=== PATIENT | female | born 1945 | race Caucasian/White ===

== ENCOUNTER → 2016-11-13 | Day surgery (SDC) | payer MEDICARE, BC ==
[2016-11-12 08:42] VITALS: BMI 41.1
[~2016-11-13] MED LIST: ATORVASTATIN 40 MG TAB PO SCH; FLECAINIDE ACETATE 75 MG PO SCH; FUROSEMIDE 20 MG TAB PO PRN; LACTATED RINGERS 1,000 ML IV SCH; LIDOCAINE 1% 20 ML VIAL (10MG/ML) FOR IV START INTRADERMA PRN; LIDOCAINE 1% INJ 10MG/ML (20 ML MDV) ONE; MELOXICAM 7.5 MG TAB PO SCH; METOPROLOL TARTRATE 50 MG TAB PO SCH; NON-FORMULARY DRUG (Acetaminophen [Tylenol Arthritis] 650 MG) PO SCH; NON-FORMULARY DRUG (Omeprazole [Prilosec] 20 MG) PO SCH; PROPOFOL 10 MG/ML 20 ML VIAL IV ONE; SODIUM CHLORIDE 0.9% 1,000 ML IV SCH; WARFARIN 5 MG TAB PO SCH
[2016-11-13 08:07] LABS: Prothrombin Time 28.6 sec (9.0-12.0)
[2016-11-13 08:23] VITALS: RESP 16
--- NOTE | 2016-11-13 09:14 | ECHOT ---
DATE OF SERVICE: INDICATION: Evaluation left atrial appendage. PROCEDURE: After explaining the procedure to the patient as well as the risks and complications, blood pressure, heart rate, O2 saturation was monitored. The throat was sprayed with Cetacaine. She received sedation per anesthesia department. The probe was introduced in the esophagus without difficulty. Images were obtained. Following that, the probe was removed. There was no immediate complication. FINDINGS: Left atrial size is upper size of normal. Left atrial appendage is normal. Right atrial size is dilated. Left ventricular size and systolic function normal. The aortic valve, mitral valve, tricuspid valve and pulmonic valve appear to be normal. Descending thoracic aorta revealed mild atherosclerotic changes. No pericardial effusion was noted. Contrast bubble study revealed no evidence of shunting across the interatrial septum. Doppler pulse wave and color Doppler obtained revealed a mild mitral with moderate tricuspid regurgitation. There was no shunting by color Doppler study. CONCLUSION: 1. Normal appearance of left atrial appendage. 2. Dilated right atrium. 3. Normal left ventricular size with ejection fraction 50% to 55%. 4. Mild mitral with moderate tricuspid regurgitation and no significant pulmonary hypertension. 5. No shunting across the interatrial septum.
--- NOTE | 2016-11-13 09:16 | CE ---
DATE OF SERVICE: CARDIOVERSION PROCEDURE NOTE INDICATION: Atrial fibrillation. PROCEDURE: After explaining the procedure to the patient as well as the risks and complications and performing transesophageal echocardiogram, a synchronized biphasic cardioversion using 200 joules was done with successful temple of normal sinus rhythm. There was no immediate complication.
[2016-11-13 10:09] VITALS: TEMP 98
[2016-11-13 10:23] VITALS: BP 143/64; PULSE 55
== END | disposition home or self-care (01) ==
LOC: CATHCVL 07:17
PROVIDERS: ATTEND Internal Medicine Interventional Cardiology
DX: I48.91 Unspecified atrial fibrillation (principal); I70.0 Atherosclerosis of aorta; I07.1 Rheumatic tricuspid insufficiency; I48.3 Typical atrial flutter; Z79.01 Long term (current) use of anticoagulants; I25.10 Atherosclerotic heart disease of native coronary artery without angina pectoris; I10 Essential (primary) hypertension; E78.2 Mixed hyperlipidemia; Z82.49 Family history of ischemic heart disease and other diseases of the circulatory system; Z79.899 Other long term (current) drug therapy; Z88.1 Allergy status to other antibiotic agents
CPT/HCPCS: 93312; 93320; 93005; 93325; 92960; 85610; J2001; J2704

== ENCOUNTER 2017-04-28 06:21 | Day surgery (SDC) | payer MEDICARE, BC ==
[~2017-04-28 06:21] MED LIST changes: -ATORVASTATIN 40 MG TAB PO SCH; -FLECAINIDE ACETATE 75 MG PO SCH; -FUROSEMIDE 20 MG TAB PO PRN; +HYDROmorphone 1 MG/ML 1 ML SYRINGE IVP PRN; -LIDOCAINE 1% 20 ML VIAL (10MG/ML) FOR IV START INTRADERMA PRN; -LIDOCAINE 1% INJ 10MG/ML (20 ML MDV) ONE; -MELOXICAM 7.5 MG TAB PO SCH; -METOPROLOL TARTRATE 50 MG TAB PO SCH; +MIDAZOLAM 2 MG/2 ML VIAL IV PRN; -NON-FORMULARY DRUG (Acetaminophen [Tylenol Arthritis] 650 MG) PO SCH; -NON-FORMULARY DRUG (Omeprazole [Prilosec] 20 MG) PO SCH; -PROPOFOL 10 MG/ML 20 ML VIAL IV ONE; -SODIUM CHLORIDE 0.9% 1,000 ML IV SCH; -WARFARIN 5 MG TAB PO SCH
[2017-04-28] MEDS: SODIUM CHLORIDE 0.9% 1,000 ML IV ONE ×2 (06:45→16:48)
[2017-04-28 07:13] LABS: INR 2.4 (<1.2); Prothrombin Time 23.3 sec (9.0-12.0)
[2017-04-28] MEDS ORDERED: PROTAMINE SULFATE 10 MG/ML 5 ML VIAL IV ONE (07:24)
[2017-04-28] MEDS ORDERED: ePHEDrine SULFATE/0.9% NACL/PF 50 MG/5 ML SYRINGE IV ONE (07:24)
[2017-04-28] MEDS ORDERED: FUROSEMIDE 10 MG/ML 2 ML VIAL ONE (07:24)
[2017-04-28] MEDS ORDERED: ISOPROTERENOL 250 MCG/1.25 ML SYR IV ONE (07:24)
[2017-04-28] MEDS ORDERED: LIDOCAINE 1% INJ 10MG/ML (20 ML MDV) ONE (07:24)
[2017-04-28] MEDS ORDERED: PROPOFOL 10 MG/ML 20 ML VIAL IV ONE (07:24)
[2017-04-28] MEDS ORDERED: fentaNYL (PF) 50 MCG/ML 2 ML AMP ONE (07:24)
[2017-04-28] MEDS ORDERED: HEPARIN SODIUM,PORCINE 10,000 UNIT/ML 1 ML VIAL ONE (07:24)
[2017-04-28] MEDS ORDERED: SUCCINYLCHOLINE CHLORIDE 100 MG/5 ML SYR IV ONE (07:24)
[2017-04-28] MEDS ORDERED: HEPARIN SODIUM,PORCINE 5,000 UNIT/ML 1 ML VIAL ONE (07:24)
[2017-04-28] MEDS ORDERED: ONDANSETRON 4 MG/2 ML VIAL ONE ×2 (07:24→15:37)
[2017-04-28] MEDS ORDERED: MIDAZOLAM 2 MG/2 ML VIAL ONE (07:24)
[2017-04-28] MEDS ORDERED: IV FLUID CONTINUATION 900 ML IV ONE (07:30)
[2017-04-28] MEDS ORDERED: LIDOCAINE 2% INJ 20 MG/ML SQ ONE (08:19)
[2017-04-28] MEDS ORDERED: HEPARIN SODIUM,PORCINE/D5W PMX 25,000 UNIT in DEXTROSE/WATER 1 500ML.BAG IV ONE (08:36)
[2017-04-28] MEDS ORDERED: HEPARIN SODIUM (1,000 UNIT/ML) 1,000 UNIT in SODIUM CHLORIDE 0.9% 1,000 ML IRRIGATION ONE (11:28)
[2017-04-28] MEDS ORDERED: IOHEXOL 350 MG/ML 100 ML BOTTLE INJ ONE (12:01)
[2017-04-28] MEDS ORDERED: SODIUM CHLORIDE 0.9% 1,000 ML IV ONE (12:16)
[2017-04-28] MEDS ORDERED: SODIUM CHLORIDE 0.9% 500 ML IV ONE (12:16)
[2017-04-28] MEDS ORDERED: ACETAMINOPHEN IV (For NPO) 1,000 MG in EMPTY BAG 1 BAG IVPB ONE (13:54)
[2017-04-28] MEDS ORDERED: ACETAMINOPHEN TAB 325 MG TAB PO PRN (13:54)
[2017-04-28] MEDS ORDERED: FUROSEMIDE 20 MG TAB PO PRN (14:00)
--- NOTE | 2017-04-28 14:00 | P.PCN ---
Preoperative Diagnosis: Procedure A. fib ablation Indication for the procedure Symptomatic paroxysmal atrial fibrillation, drug refractory Procedures performed Invasive hemodynamic monitoring and sampling via right femoral artery catheter Comprehensive diagnostic EP study with induction of arrhythmia Coronary sinus pacing and recording Programmed stimulation following Isuprel with induction of atrial fibrillation Right and left transseptal catheterization Intracardiac echocardiography 3-D mapping Pulmonary vein isolation, all 4 veins completely isolated with entrance block, during sinus rhythm Linear ablation in the left atrium roof during atrial fibrillation Linear ablation in the left atrium anterior LA wall during atrial fibrillation Result Isolation of all 4 pulmonary veins Termination of atrial fibrillation outside the left superior pulmonary vein along the roof, closest to the base of the appendage Successful termination of atrial fibrillation during the procedure The right inferior pulmonary vein is low relative to the rest of the atrium Left-sided veins have a large common ostium Postoperative Diagnosis: Procedure(s) Performed: Implants: Indications for Procedure: Operative Findings: Description of Procedure:
--- NOTE | 2017-04-28 15:01 | P.PCN ---
Preoperative Diagnosis: Patient was brought to the EP lab in a fasting state. Written informed consent was obtained prior to procedure the procedure was performed under general anesthesia venous sheaths were placed in the right femoral vein and 2 venous sheaths in the left femoral vein and right femoral artery catheter was placed for hemodynamic monitoring and sampling. ACT was maintained above 300. Catheters were placed in high right atrium, His bundle area, right ventricle and coronary sinus later in the left atrium. Patient was in sinus rhythm. Study Intracardiac echocardiography was performed. Interatrial septum was identified. Pulmonary veins were identified and left atrial appendage was identified. Left and right transseptal catheterization was performed RA pressure 20/14 mmHg and LA pressure was 29 by 10 mmHg Baseline AH and HV intervals are normal Diagnoses EP study was performed from the high right atrium and right ventricle and coronary sinus Sinus node recovery times were within normal limits AV node Wenckebach block 360 ms Burst stimulation from the high right atrium, burst stimulation from the coronary sinus Extra stimulation after triple extrastimuli from the high right atrium and multiple sites along with coronary sinus Diagnostic EP study is performed on Isuprel Atrial fibrillation was induced A. fib ablation, pulmonary vein isolation Cryoablation was performed Cryoablation of the common left-sided veins was performed and complete isolation was documented Cryoablation of the right superior only vein was performed with phrenic nerve pacing and isolation was documented, entrance block documented Cryoablation of the right inferior pulmonary vein was performed during phrenic nerve pacing and entrance block was documented Following that linear A. fib ablation in the left atrium was performed Using the CARTO system and RF ablation cath was placed in the left atrium and the pulmonary veins were mapped in the left atrium was mapped Linear ablation along the anterior wall from the right superior vein down to the mitral annulus was performed Linear ablation along the roof was performed and this resulted in termination of the atrial fibrillation outside the base of the left atrial appendage and left superior pulmonary vein along the roof Result Successful pulmonary vein isolation of all 4 pulmonary veins Linear ablation along the anterior LA wall Linear ablation along the roof resulting in termination of atrial fibrillation Patient tolerated the procedure well without any acute complications Postoperative Diagnosis: Procedure(s) Performed: Implants: Indications for Procedure: Operative Findings: Description of Procedure:
[2017-04-28] MEDS ORDERED: ONDANSETRON 4 MG/2 ML VIAL IVP PRN (15:37)
[2017-04-28] MEDS ORDERED: WARFARIN 5 MG TAB PO SCH (18:00)
[2017-04-28] MEDS: SODIUM CHLORIDE 0.9% 1,000 ML IV SCH ×2 (18:04→21:53)
[2017-04-28 18:24] VITALS: BMI 43.1
[2017-04-28] MEDS: ATORVASTATIN 40 MG TAB PO SCH (20:04)
[2017-04-28] MEDS: METOPROLOL TARTRATE 25 MG TAB PO SCH (20:04)
[2017-04-29 06:31] LABS: Anion Gap 9 mmol/L; Blood Urea Nitrogen 16 mg/dL (7-17); Calcium 8.5 mg/dL (8.4-10.2); Carbon Dioxide 24 mmol/L (22-30); Chloride 107 mmol/L (98-107); Glucose 98 mg/dL (74-99); INR 2.1 (<1.2); Non-African American GFR(MDRD) >60 (>60 ml/min/1.73 sqM); Potassium 3.7 mmol/L (3.5-5.1); Prothrombin Time 20.6 sec (9.0-12.0); Sodium 140 mmol/L (137-145)
[2017-04-29] MEDS ORDERED: PANTOPRAZOLE 40 MG TABLET PO SCH (07:30)
--- NOTE | 2017-04-29 08:26 | P.DS ---
Providers Attending physician: João Tucker Primary care physician: Tanya Gauri [facility] Course: Patient is doing well She denies any chest discomfort pleuritic chest discomfort shortness of breath dizziness lightheadedness. Yesterday she had a bit of nausea but today she is doing well. She is eating breakfast at this time. Heart sounds are normal breath sounds are clear extremities warm groins have healed well Vitals are stable Impression Recurrent paroxysmal atrial fibrillation refractory to treatment Status post A. fib ablation and termination of atrial fibrillation during RF ablation outside the base of the left atrial appendage, at the lateral and of the roof of the left atrium and outside the left superior pulmonary vein Dyslipidemia Plan Continue current medications and continue Coumadin lifelong If the patient is stable today she'll be discharged home and will follow-up with Dr. Dr. Montague in about a week Patient Condition at Discharge: Stable Plan - Discharge Summary New Discharge Prescriptions: Continue Warfarin [Coumadin] 5 mg PO MOTUTHFRSA Warfarin [Coumadin] 2.5 mg PO SUWE Metoprolol Tartrate [Lopressor] 25 mg PO BID Furosemide [Lasix] 20 mg PO DAILY PRN PRN Reason: Edema Meloxicam [Mobic] 7.5 mg PO BID Atorvastatin [Lipitor] 40 mg PO HS Omeprazole [PriLOSEC] 20 mg PO AC-BRKFST Acetaminophen [Tylenol Arthritis] 650 mg PO BID Discharge Medication List Furosemide [Lasix] 20 mg PO DAILY PRN 05/04/14 [History] Metoprolol Tartrate [Lopressor] 25 mg PO BID 05/04/14 [History] Warfarin [Coumadin] 2.5 mg PO SUWE 05/04/14 [History] Warfarin [Coumadin] 5 mg PO MOTUTHFRSA 05/04/14 [History] Acetaminophen [Tylenol Arthritis] 650 mg PO BID 11/12/16 [History] Atorvastatin [Lipitor] 40 mg PO HS 11/12/16 [History] Meloxicam [Mobic] 7.5 mg PO BID 11/12/16 [History] Omeprazole [PriLOSEC] 20 mg PO AC-BRKFST 11/12/16 [History] Activity/Diet/Wound Care/Special Instructions: Post EP study - Ablation instructions 1. Keep access sites dry for 2 days. 2. No heavy lifting or straining for 2 days. 3. Avoid bending the hips repeatedly for 2 days. 4. You may go up and down stairs slowly Call if the following is noted 1. Bleeding, increasing swelling or pain at the access sites. 2. Increasing chest discomfort, especially upon taking a deep breath. 3. Increasing shortness of breath, at rest or with exertion. 4. Undue cough / phlegm 5. Difficulty or pain while swallowing. 6. Pain or change in color in the extremities. 7. Fever, chills, rigors. 8. Increasing headache or neurologic symptoms. 9. Dizziness, fainting, palpitations
[2017-04-29] MEDS: METOPROLOL TARTRATE 25 MG TAB PO SCH ×2 (08:55→16:49)
[2017-04-29 09:05] VITALS: RESP 18
[2017-04-29 15:54] VITALS: BP 123/60; PULSE 77; TEMP 97.1
[2017-04-29] MEDS: ATORVASTATIN 40 MG TAB PO SCH (16:48)
[2017-04-29] MEDS ORDERED: WARFARIN 2.5 MG TAB PO SCH (18:00)
== END 2017-04-29 17:31 | disposition home or self-care (01) ==
LOC: CATHEP 06:21 → 6SEL 13:00 → 3OBS 17:11 → CATHEP 17:11 → 6SEL 17:53 → 3OBS 17:53 → CATHEP 04-29 17:31
PROVIDERS: ATTEND Internal Medicine Clinical Cardiac Electrophysiology
DX: I48.0 Paroxysmal atrial fibrillation (principal); Z79.01 Long term (current) use of anticoagulants; I25.10 Atherosclerotic heart disease of native coronary artery without angina pectoris; I10 Essential (primary) hypertension; Z82.49 Family history of ischemic heart disease and other diseases of the circulatory system; Z87.891 Personal history of nicotine dependence; E78.5 Hyperlipidemia, unspecified; Z79.899 Other long term (current) drug therapy; Z88.1 Allergy status to other antibiotic agents
CPT/HCPCS: 85347; 93623; 93662; 93613; 93656; 80048; 85610 ×2; C1894 ×3; C1769 ×4; C1730 ×3; C1759; C1893; C1732; C1733; C1766; J2001 ×2; J2250; J2720; J1644 ×4; J1940; Q9967; J2405; J3010; J0131; J0330; J2704

== ENCOUNTER → 2019-06-23 | Outpatient (CLI) | payer MEDICARE, BC ==
--- NOTE | 2019-06-23 13:57 | XR ---
EXAMINATION TYPE: XR ribs LT w pa chest xray DATE OF EXAM: 06/23/2019 CLINICAL HISTORY: Chest and left-sided rib pain after falling injury 5 days ago. TECHNIQUE: Single frontal view of the chest is obtained. Frontal and oblique images of the left-side d ribs. COMPARISON: Chest x-ray December 12, 2014 FINDINGS: There is chronic right pleural changes with new left basilar opacity. No pleural effusion or pneumothorax is noted bilaterally. Surgical clips near epigastric region remain present. The card iac silhouette size remains mildly enlarged with atherosclerotic aorta. The osseous structures are demineralized. Cholecystectomy clips are noted. Dedicated images of left-sided ribs show acute minimally displaced fracture involving anterolateral e ighth rib. Overlying soft tissues are unremarkable. IMPRESSION: 1. Acute minimally displaced fracture involving anterolateral left eighth rib. 2. Cardiomegaly and chronic parenchymal changes with new patchy left basilar atelectasis and/or infil trate.
== END | disposition home or self-care (01) ==
LOC: RADXRYALE 13:25
PROVIDERS: ATTEND Internal Medicine
DX: J98.11 Atelectasis (principal); I51.7 Cardiomegaly

== ENCOUNTER → 2019-11-01 | Outpatient (CLI) | payer MEDICARE, BC ==
[2019-11-01 16:47] LABS: HCT 37.7 % (34.0-46.0); HGB 12.5 gm/dL (11.4-16.0); MCHC 33.1 g/dL (31.0-37.0); MCV 99.7 fL (80.0-100.0); Mean Platelet Volume 7.5; Platelet Count 216 k/uL (150-450); RBC 3.78 m/uL (3.80-5.40); RDW 12.7 % (11.5-15.5); WBC 4.5 k/uL (3.8-10.6)
[2019-11-01 16:56] LABS: ALT 20 U/L (4-34); AST 28 U/L (14-36); African American GFR (CKD) >90 (>60 ml/min/1.73 sqM); Alkaline Phosphatase 105 U/L (38-126); Anion Gap 6 mmol/L; Blood Urea Nitrogen 16 mg/dL (7-17); Calcium 9.2 mg/dL (8.4-10.2); Carbon Dioxide 30 mmol/L (22-30); Chloride 104 mmol/L (98-107); Glucose 102 mg/dL (74-99); Non-African American GFR(CKD) 89 (>60 ml/min/1.73 sqM); Potassium 4.6 mmol/L (3.5-5.1); Sodium 140 mmol/L (137-145); Total Bilirubin 0.6 mg/dL (0.2-1.3); Total Protein 7.2 g/dL (6.3-8.2)
[2019-11-01 16:57] LABS: Partial Thromboplastin Time 33.4 sec (22.0-30.0)
[2019-11-01 19:12] LABS: Bacteria,Urine Many /hpf; Mucus,Urine Occasional /hpf; RBC,Urine 5 /hpf (0-5); Squamous Epithelial Cell,Urine 3 /hpf (0-4); WBC,Urine 1 /hpf (0-5)
[2019-11-01 19:44] LABS: Appearance,Urine Slightly Cloudy (Clear); Color,Urine Yellow; Specific Gravity,Urine 1.025 (1.001-1.035)
[2019-11-01 19:45] LABS: Bilirubin,Urine Negative (Negative); Blood,Urine Small (Negative); Glucose,Urine (UA) Negative (Negative); Ketones,Urine Negative (Negative); Leukocyte Esterase,Urine Negative (Negative); Nitrite,Urine Negative (Negative); Protein,Urine Negative (Negative); Urobilinogen,Urine <2.0 mg/dL (<2.0)
== END ==
LOC: LABPAT 15:49
PROVIDERS: ATTEND Orthopaedic Surgery
DX: Z01.812 Encounter for preprocedural laboratory examination (principal); Z51.81 Encounter for therapeutic drug level monitoring; Z79.01 Long term (current) use of anticoagulants
CPT/HCPCS: 36415; 80053; 81001; 85027; 85610; 85730; 87070

== ENCOUNTER 2019-11-07 07:49 | Inpatient (IN) | payer MEDICARE, BC ==
[2019-11-01 09:37] VITALS: BMI 40.9
[~2019-11-07 07:49] MED LIST changes: +ACETAMINOPHEN TAB 500 MG TAB PO ONE; +GABAPENTIN 300 MG CAP PO ONE; -HYDROmorphone 1 MG/ML 1 ML SYRINGE IVP PRN; -LACTATED RINGERS 1,000 ML IV SCH; +LIDOCAINE 1% 20 ML VIAL (10MG/ML) FOR IV START INTRADERMA PRN; +MELOXICAM 7.5 MG TAB PO ONE; -MIDAZOLAM 2 MG/2 ML VIAL IV PRN; +ROPIVACAINE 246.25 MG, EPINEPHrine 0.5 MG, KETOROLAC 30 MG, cloNIDine HCL/PF 80 MCG, WA... MISCELLANE ONE; +TRANEXAMIC ACID 1,000 MG in SODIUM CHLORIDE 0.9% 100 ML IVPB ONE
[2019-11-07] MEDS: LACTATED RINGERS 1,000 ML IV SCH ×3 (08:45→15:57)
[2019-11-07] MEDS ORDERED: ONDANSETRON 4 MG/2 ML VIAL IVP ONE (08:50)
[2019-11-07 09:07] LABS: INR 1.1 (<1.2); Prothrombin Time 10.9 sec (9.0-12.0)
[2019-11-07] MEDS ORDERED: TRANEXAMIC ACID 1,000 MG/10 ML VIAL ONE (09:39)
[2019-11-07] MEDS ORDERED: SODIUM CHLORIDE 0.9% 100 ML BAG ONE (09:39)
[2019-11-07] MEDS ORDERED: fentaNYL (PF) 50 MCG/ML 2 ML AMP ONE (09:39)
[2019-11-07] MEDS ORDERED: MIDAZOLAM 2 MG/2 ML VIAL ONE (09:39)
[2019-11-07] MEDS ORDERED: diphenhydrAMINE 50 MG/ML 1 ML VIAL ONE (09:39)
[2019-11-07] MEDS ORDERED: CLINDAMYCIN 150 MG/ML 4 ML VIAL IVPB ONE (09:41)
[2019-11-07] MEDS ORDERED: CLINDAMYCIN 1,800 MG in SODIUM CHLORIDE 0.9% IRRIGATIO 3,000 ML IRRIGATION ONE (10:15)
--- NOTE | 2019-11-07 10:51 | P.OP ---
Date of Procedure: 11/07/19 Preoperative Diagnosis: Severe osteoarthritis right hip Postoperative Diagnosis: Severe osteoarthritis right hip Procedure(s) Performed: Right total hip arthroplasty with a direct anterior approach Implants: Ge and nephew Polarstem size 3 standard Ge [employer] Nephew R3, 3 hole acetabular shell, 48 mm Ge [employer] Nephew reflection 6.5 mm cancellus screw, 20 mm 2 Ge [employer]hew R3, XLPE 20 acetabular liner Ge & Nephew Oxinium femoral head 32 m, +0 All components were press-fit. The articulation is Oxinium on polyethylene. Anesthesia: spinal Surgeon: Maxi Braga Pipe Organ Mechanic #1: Claudia Castañeda Estimated Blood Loss (ml): 150 Pathology: other (Femoral head) Condition: stable Disposition: PACU Indications for Procedure: After failure of conservative treatment we discussed the surgical and nonsurgical treatment options at length. Patient wishes to proceed with a total hip arthroplasty with a direct anterior approach. Complications specific to this procedure were discussed at length, including but not limited to infection, leg length discrepancy, dislocation, and nerve injury. Patient is aware of all these complications and informed consent was obtained Operative Findings: The operative findings are consistent with severe osteoarthritis of the right hip Description of Procedure: Patient was seen and evaluated in the preoperative area, consent was reviewed, and the surgical site was marked with a skin marker. Patient was then brought to the operating room and given prophylactic antibiotics intravenously. 1 g of Tranexamic acid was also given. A spinal anesthetic was administered by the anesthesia department. The patient was then placed on the [place] table with the bony prominences well-padded. The hip area was then prepped and draped in usual sterile fashion. A universal timeout was then performed, which confirmed the patient's name, surgical site, ALLERGIES, and procedure being performed. Next the incision site was located at 1 cm distal and 1 cm lateral to the anterior superior iliac spine. The skin and subcutaneous tissues were sharply incised. Incision was carefully dissected down to the fascia overlying the tensor fascia julian muscle. This fascia was then incised in line with the incision. Next, using blunt finger dissection, the tensor fascia julian muscle was dissected off its investing fascia. The muscle was then carefully retracted laterally with a cobra retractor over the lateral neck of the femur. Next, the circumflex vessels were identified and cauterized using the AquaMantis device. The anterior hip capsule was then exposed. The capsule was then opened and an inverted T fashion. Cobra retractors were then placed intracapsularly. The proximal femur was then visualized. The femoral neck was then osteotomized appropriate level above the lesser trochanter. Small amount of traction was placed with the [place] table. A small wedge of bone was then removed from the remaining femoral head. Next, using a corkscrew femoral head was easily removed from the acetabulum. On gross visual inspection, the femoral head had complete loss of articular cartilage in multiple periarticular osteophytes. Attention was then turned to the acetabulum. the acetabulum was exposed and any remaining labrum was excised. Sequential reaming of the acetabulum was performed using fluoroscopic guidance. When the appropriate size was reached, a trial was then placed. The position and fit of the trial was checked with fluoroscopy. The trial was then removed. Then, using fluoroscopic guidance, the final implant was impacted at 20 of anteversion and 40 of abduction, and fully seated in the acetabulum. 2 screws were then placed in the acetabulum. Again fluoroscopy was used to check position of the screws. Next, the liner was then impacted, with a 20 elevated liner located in the anterior superior quadrant. Component locking was confirmed. Attention was then directed to the femur. With the aid of the [place] table, the femur was externally rotated to approximately 130, extended, and abducted under the opposite leg. A side hook was then placed under the proximal femur, and the side hook elevator was used to elevate the proximal femur. Retractors were then placed. A capsular release was performed, as well as a release of the conjoined tendon, which afforded excellent visualization of the proximal femur. Next, a box osteotome was used to lateralize the proximal femur. A hand cultivator was then used to locate the femoral canal. Sequential broaching was then performed with appropriate size which afforded excellent fixation in the proximal femur. A trial was then placed with appropriate head and neck, and the hip was gently reduced with the aid of the [place] table. Fluoroscopy was then used to check position of the components, as well as to ensure equal leg lengths. The hip was then gently dislocated and the trials were then removed. Final implants were then impacted and the hip was again reduced. Final fluoroscopic x-rays confirmed that the components were in anatomic position, as well as equal leg lengths. The hip was also taken through range of motion, and found to be s table. The hip was then copiously irrigated with antibiotic solution with pulsatile lavage. The hip was then irrigated with Irrisept solution. The soft tissues were then injected with a ropivacaine solution, which consisted of 246.25 mg of ropivacaine, 0.5 mg of epinephrine, 30 mg of Toradol, 80 g of clonidine, and 48.45 mL of sterile water, for a total of 100 mL of fluid injected. A second d ose of 1 g of Tranexamic acid was also given. the fascia was then closed with 2-0 strata fix suture. The subcutaneous tissue was closed with 3-0 Vicryl. The subcuticular tissue was closed with 3-0 strata fix suture. The skin was then closed with Dermabond glue and a sterile silver dressing. The patient was then transferred to the recovery room in stable condition. The assistant community director ESHA Calvillo was required due to the complexity of surgery, and the need for skilled neurosurgical physician assistant for positioning, draping, exposure, retraction, and closure of the wound.
[2019-11-07] MEDS ORDERED: LACTATED RINGERS 1,000 ML IV ONE (11:12)
--- NOTE | 2019-11-07 11:18 | XR ---
EXAMINATION TYPE: XR Hip Limited RT, FL guidance operating room DATE OF EXAM: 11/07/2019 CLINICAL HISTORY: Fluoroscopic documentation during right hip arthroplasty TECHNIQUE: Fluoroscopy. COMPARISON: None. FINDINGS: Fluoroscopic guidance was provided during procedure performed by Dr. Braga. A total of 47 seconds of fluoroscopic time was utilized during the procedure and 2 spot images were acquired du ring right hip arthroplasty. IMPRESSION: As Above.
[2019-11-07] MEDS ORDERED: ONDANSETRON 4 MG/2 ML VIAL IVP PRN (11:34)
[2019-11-07] MEDS ORDERED: ACETAMINOPHEN TAB 325 MG TAB PO PRN (11:34)
[2019-11-07] MEDS ORDERED: NALOXONE 0.4 MG/ML 1 ML VIAL IV PRN (11:34)
[2019-11-07] MEDS ORDERED: HYDROmorphone 0.5 MG/0.5 ML SYRINGE IVP PRN ×3 (11:34)
[2019-11-07] MEDS ORDERED: HYDROcodone/APAP 5-325MG 1 EACH TAB PO PRN (11:34)
[2019-11-07] MEDS ORDERED: MAGNESIUM HYDROXIDE 2,400 MG/10 ML CUP PO PRN (11:34)
--- NOTE | 2019-11-07 11:57 | XR ---
EXAMINATION TYPE: XR Hip Limited RT DATE OF EXAM: 11/07/2019 CLINICAL HISTORY: Right hip pain and osteoarthritis. TECHNIQUE: Single AP portable view of right hip is obtained immediately postoperatively. COMPARISON: None. FINDINGS: Metallic hardware from right hip arthroplasty is seen and appears satisfactory in alignment and position. There is evidence of recent surgery with subcutaneous gas noted laterally. IMPRESSION: Metallic hardware from right hip arthroplasty is satisfactory in position.
[2019-11-07] MEDS: HYDROcodone/APAP 5-325MG 1 EACH TAB PO PRN ×2 (17:14→23:08)
[2019-11-07] MEDS: CLINDAMYCIN 900 MG in DEXTROSE 5% IN WATER 50 ML IVPB SCH ×4 (17:15→22:53)
[2019-11-07] MEDS ORDERED: WARFARIN 2.5 MG TAB PO ONE (18:00)
[2019-11-07] MEDS ORDERED: ASPIRIN 325 MG TAB PO SCH (21:00)
[2019-11-07] MEDS ORDERED: SENNOSIDES-DOCUSATE SODIUM 1 EACH TAB PO SCH (21:00)
[2019-11-08] MEDS: HYDROcodone/APAP 5-325MG 1 EACH TAB PO PRN ×2 (07:15→13:16)
--- NOTE | 2019-11-08 07:26 | P.CONS ---
History of Present Illness - History of Present Illness Date of service is 11/07/19 This is a pleasant 74 years old female with past medical history of atrial fibrillation, gastroesophageal reflux disease, migraine, osteoarthritis and hyperlipidemia. Presents for elective right total hip arthroplasty, she is postoperative day #0. Patient looks sleepy in bed, does not response to stimuli, probably due to her anesthesia she received. Vital stables. We'll keep monitoring Review of Systems N/a Past Medical History Past Medical History: Atrial Fibrillation, GERD/Reflux, Hyperlipidemia, Osteoarthritis (OA) Additional Past Medical History / Comment(s): hx migraines, varicose veins, BARRETTS ESOPHAGUS. See History of Any Multi-Drug Resistant Organisms: None Reported Past Surgical History: Cholecystectomy, Heart Catheterization, Hernia Repair, Orthopedic Surgery Additional Past Surgical History / Comment(s): JENNA, CARDIOVERSION, RYAN cataracts, skin graft rt leg, ryan carpal tunnel, left wrist, attempted bariatric surgery. Past Anesthesia/Blood Transfusion Reactions: Motion Sickness Additional Past Anesthesia/Blood Transfusion Reaction / Comm: ON A BOAT Past Psychological History: No Psychological Hx Reported Smoking Status: Former smoker Past Alcohol Use History: None Reported Additional Past Alcohol Use History / Comment(s): Quit smoking in 1988-after 26yrs of smoking. Past Drug Use History: None Reported - Past Family History Father Family Medical History: Cancer Additional Family Medical History / Comment(s): ESOPHAGUS Sister(s) Family Medical History: Cancer Additional Family Medical History / Comment(s): Breast Brother(s) Family Medical History: Cancer Medications and Allergies Home Medications Medication Instructions Recorded Confirmed Type Furosemide [Lasix] 20 mg PO DAILY PRN 05/04/14 11/01/19 History Metoprolol Tartrate [Lopressor] 25 mg PO BID 05/04/14 11/01/19 History Warfarin [Coumadin] 2.5 mg PO PRITCHETT 05/04/14 11/01/19 History Warfarin [Coumadin] 5 mg PO MOTUWETHFRSA 05/04/14 11/01/19 History Acetaminophen [Tylenol Arthritis] 650 mg PO BID 11/12/16 11/01/19 History Atorvastatin [Lipitor] 40 mg PO HS 11/12/16 11/01/19 History Meloxicam [Mobic] 7.5 mg PO BID 11/12/16 11/01/19 History Omeprazole [PriLOSEC] 20 mg PO AC-BRKFST 11/12/16 11/01/19 History HYDROcodone/APAP 5-325MG [[place] 1 - 2 each PO Q4-6H PRN #50 tab 11/07/19 Rx 5-325] Meloxicam [Mobic] 1 - 2 tab PO DAILY PRN #30 tab 11/07/19 Rx Allergies Allergy/AdvReac Type Severity Reaction Status Date / Time cephalexin monohydrate Allergy skin Verified 11/01/19 09:21 [From Keflex] turned red propoxyphene napsylate Allergy Rapid Verified 11/01/19 09:21 [From Darvocet-N] Heart Rate Physical Exam Vitals: Vital Signs Temp Pulse Pulse Pulse Resp BP BP 11/08/19 02:31 98.7 F 73 18 93/50 11/07/19 18:54 97.7 F 71 18 101/61 11/07/19 13:15 71 116/72 11/07/19 13:00 69 122/75 11/07/19 12:45 75 143/83 11/07/19 12:30 97.3 F L 66 16 145/77 11/07/19 12:15 70 16 112/56 11/07/19 12:02 69 16 111/53 11/07/19 11:47 67 16 132/58 11/07/19 11:32 96.8 F L 70 14 112/60 11/07/19 08:20 97.8 F 63 20 149/66 Pulse Ox 11/08/19 02:31 94 L 11/07/19 18:54 93 L 11/07/19 13:15 11/07/19 13:00 11/07/19 12:45 11/07/19 12:30 93 L 11/07/19 12:15 98 11/07/19 12:02 97 11/07/19 11:47 92 L 11/07/19 11:32 95 11/07/19 08:20 96 Intake and Output 11/07/19 11/07/19 11/08/19 14:59 22:59 06:59 Intake Total 1051 Output Total 150 Balance 901 Intake: IV 1051 Output: Estimated Blood Loss 150 Other: Voiding Method Toilet # Voids 1 1 Weight 100.3 kg -GENERAL: The patient is sleepy from anesthesia affect HEENT: Pupils are round and equally reacting to light. EOMI. No scleral icterus. No conjunctival pallor. Normocephalic, atraumatic. No pharyngeal erythema. No thyromegaly. CARDIOVASCULAR: S1 and S2 present. No murmurs, rubs, or gallops. PULMONARY: Chest is clear to auscultation, no wheezing or crackles. ABDOMEN: Soft, nontender, nondistended, normoactive bowel sounds. No palpable organomegaly. MUSCULOSKELETAL: No joint swelling or deformity. -EXTREMITIES: No cyanosis, clubbing, or pedal edema. Right hip wound in dressing NEUROLOGICAL: Gross neurological examination did not reveal any focal deficits. SKIN: No rashes. no petechiae. Assessment and Plan Assessment: Osteoarthritis of the right hip, failed outpatient therapy, admitted for elective right total hip arthroplasty Drowsiness, secondary to anesthesia. Most likely Hyperlipidemia Chronic atrial fibrillation Gastroesophageal reflux disease History of migraine Plan: This is a pleasant 74 years old female who was admitted for elective right hip arthroplasty, we will evaluate the patient to wake up from anesthesia effect, keep monitoring the patient closely and will follow-up Labs and medication were reviewed.. Continue same treatment. Continue with symptomatic treatment. Resume home medication. Monitor lytes and vitals. DVT and GI prophylaxis. Further recommendations of the clinical course of the patient DVT PROPHYLAXIS AND PAIN MANAGEMENT PER PRIMARY TEAM PT/OT: Pending Prognosis is guarded
[2019-11-08 07:32] LABS: Basophils % (A) 0 %; Eosinophils % (A) 0 %; HCT 31.5 % (34.0-46.0); HGB 10.6 gm/dL (11.4-16.0); Lymphocytes # (A) 0.9 k/uL (1.0-4.8); Lymphocytes % (A) 12 %; MCH 33.2 pg (25.0-35.0); MCHC 33.6 g/dL (31.0-37.0); MCV 98.8 fL (80.0-100.0); Mean Platelet Volume 7.5; Monocytes # (A) 0.4 k/uL (0-1.0); Monocytes % (A) 5 %; Neutrophils % (A) 80 %; Platelet Count 211 k/uL (150-450); RBC 3.19 m/uL (3.80-5.40); RDW 12.8 % (11.5-15.5); WBC 7.5 k/uL (3.8-10.6)
[2019-11-08 07:35] VITALS: BP 126/75; PULSE 81; RESP 16; TEMP 98.1
[2019-11-08] MEDS ORDERED: MELOXICAM 7.5 MG TAB PO SCH (09:00)
[2019-11-08 09:46] LABS: Prothrombin Time 10.4 sec (9.0-12.0)
--- NOTE | 2019-11-08 10:56 | P.PN ---
Subjective This is a pleasant 74 years old female with past medical history of atrial fibrillation, gastroesophageal reflux disease, migraine, osteoarthritis and hyperlipidemia. Presents for elective right total hip arthroplasty, she is postoperative day #1. Patient today is fully awake and oriented, she states she is from [place] and she works as a long haul truck driver but coming here because her family here and her doctors here and she follows up with Dr. Astorga and Dr. Montague her ritual circumciser for her A. fib, she still Dr. Montague about one week ago for preop evaluation. Today she is doing well with no chest pain or dyspnea, no abdominal pain, no bowel movement yet, She is passing gases, urine is fine. Patient was doing well so interested of going to rehab tomorrow orthopedic team decided to discharge her today on home health care. Medical follow-up for requested to manage her Coumadin regarding her A. fib, however management of DVT prophylaxis is going to be as per primary team. Patient states that regularly she takes Coumadin 5 mg each day except when day she takes have dose of 2.5 mg, she says she checks her INR regularly once a month and usually is been controlled. However patient took medication including tranexamic acid, and her INR yesterday is 1.1 square she got 2.5 mg of Coumadin, today is her INR 1.0, we'll going to give the patient coumadine 10 mg daily and following this, 2 days (prescription a provided) and patient will check her INR with home health care for the results instructed to be referred to Dr. Astorga and Dr. Montague, patient agrees with this plan I have lengthy discussion with the patient, with the staff as well, with instructing the patient's to keep monitoring her INR with target 2-3, also I explained to her extensively the risks of bleeding including but not limited to the risk of bleeding into the brain, joints, and intestinal tract. Patient verbalized understanding and she does not want another bridging anticoagulation for example Lovenox injection until INR comes therapeutic, because of the risk o f bleeding which looks reasonable, however patient understands that as long as her INR is subtherapeutic she will be at risk of stroke Vitas looks stable, WBC 7.5K, hemoglobin 10.6, platelet count is 211 Objective - Vital Signs Vital signs: Vital Signs Temp 98.1 F 11/08/19 07:00 Pulse 81 11/08/19 07:00 Resp 16 11/08/19 09:20 BP 126/75 11/08/19 07:00 Pulse Ox 98 11/08/19 07:00 Intake & Output 11/07/19 11/08/19 11/08/19 18:59 06:59 18:59 Intake Total 1051 Output Total 150 Balance 901 Weight 100.3 kg Intake: IV 1051 Output: Estimated Blood Loss 150 Other: Voiding Method Toilet # Voids 1 1 - Exam -GENERAL: The patient is sleepy from anesthesia affect HEENT: Pupils are round and equally reacting to light. EOMI. No scleral icterus. No conjunctival pallor. Normocephalic, atraumatic. No pharyngeal erythema. No thyromegaly. CARDIOVASCULAR: S1 and S2 present. No murmurs, rubs, or gallops. PULMONARY: Chest is clear to auscultation, no wheezing or crackles. ABDOMEN: Soft, nontender, nondistended, normoactive bowel sounds. No palpable organomegaly. MUSCULOSKELETAL: No joint swelling or deformity. -EXTREMITIES: No cyanosis, clubbing, or pedal edema. Right hip wound in dressing NEUROLOGICAL: Gross neurological examination did not reveal any focal deficits. SKIN: No rashes. no petechiae. - Labs CBC & Chem 7: 11/08/19 07:08 Labs: Abnormal Lab Results - Last 24 Hours (Table) 11/08/19 Range/Units 07:08 RBC 3.19 L (3.80-5.40) m/uL Hgb 10.6 L (11.4-16.0) gm/dL Hct 31.5 L (34.0-46.0) % Lymphocytes # 0.9 L (1.0-4.8) k/uL Assessment and Plan Assessment: Osteoarthritis of the right hip, failed outpatient therapy, admitted for electi ve right total hip arthroplasty Chronic atrial fibrillation, with subtherapeutic INR mostly due to medication effect Drowsiness, completely resolved and patient is alert awake and oriented Hyperlipidemia Gastroesophageal reflux disease History of migraine Plan: This is a pleasant 74 years old female who was admitted for elective right hip arthroplasty, today patient is awake and alert. Discussed with the patient extensively about the Coumadin management and INR follow-up as above. Patient is going to give and double dose of Coumadin for 3 days including today and will check her INR on Thursday and follow the results with Dr. Astorga and Dr. Montague (prescription is provided) Labs and medication were reviewed.. Continue same treatment. Continue with symptomatic treatment. Resume home medication. Monitor lytes and vitals. DVT and GI prophylaxis. Further recommendations of the clinical course of the patient dvt prophylaxis and pain management as per primary orthopedic team PT/OT: home health care Prognosis is guarded Patient has an appointment with Dr. Astorga on 11/14 and patient agrees also i talked to and discussed the case with her and recommendation to monitor her INR on 11/11 Thank you for consulting us
--- NOTE | 2019-11-08 11:13 | P.DS ---
Providers Date of admission: 11/08/19 08:59 Expected date of discharge: 11/08/19 Attending physician: Maxi Braga Consults: 11/07/19 11:46 Consult Physician Routine Consulting Provider: Cecelia Leija Consult Reason/Comments: medical management Do you want consulting provider notified?: Yes Primary care physician: Tanya Astorga - Discharge Diagnosis(es) (1) Status post total hip replacement, right Current Visit: Yes Status: Acute (2) Primary localized osteoarthritis of right hip Current Visit: Yes Status: Acute Hospital Course: This is a 74-year-old female with known history of degenerative arthritis of the right hip. The patient presents for evaluation. After discussion and consideration patient elects to proceed with total hip arthroplasty. The patient is seen preoperatively by her primary care physician and cleared for surgery. Patient is admitted to [facility] on 11/07/2019 for total hip arthroplasty. The procedures performed without complication or sequelae. The patient is doing well postoperatively. Labs and vital signs are stable on day of discharge. On day of discharge patient's hip incision is healing well. There is minimal erythema. There is no drainage noted at this time. There is minimal soft tissue swelling to the hip and thigh. Patient has full foot and ankle motion without difficulty or pain. Neurovascular status to the right lower extremity is intact. Patient is discharged to home in good condition. Please see med rec for accurate list of home medications. Patient Condition at Discharge: Good Plan - Discharge Summary Discharge Rx Participant: No New Discharge Prescriptions: New Meloxicam [Mobic] 1 - 2 tab PO DAILY PRN #30 tab PRN Reason: Pain HYDROcodone/APAP 5-325MG [[place] 5-325] 1 - 2 each PO Q4-6H PRN #50 tab PRN Reason: Pain Warfarin Sodium [Coumadin] 10 mg PO DAILY 2 Days #2 tablet No Action Warfarin [Coumadin] 5 mg PO MOTUWETHFRSA Warfarin [Coumadin] 2.5 mg PO PRITCHETT Metoprolol Tartrate [Lopressor] 25 mg PO BID Furosemide [Lasix] 20 mg PO DAILY PRN PRN Reason: Edema Meloxicam [Mobic] 7.5 mg PO BID Atorvastatin [Lipitor] 40 mg PO HS Omeprazole [PriLOSEC] 20 mg PO AC-BRKFST Acetaminophen [Tylenol Arthritis] 650 mg PO BID Discharge Medication List Furosemide [Lasix] 20 mg PO DAILY PRN 08/21/14 [History] Metoprolol Tartrate [Lopressor] 25 mg PO BID 05/04/14 [History] Warfarin [Coumadin] 2.5 mg PO PRITCHETT 05/04/14 [History] Warfarin [Coumadin] 5 mg PO MOTUWETHFRSA 05/04/14 [History] Acetaminophen [Tylenol Arthritis] 650 mg PO BID 11/12/16 [History] Atorvastatin [Lipitor] 40 mg PO HS 11/12/16 [History] Meloxicam [Mobic] 7.5 mg PO BID 11/12/16 [History] Omeprazole [PriLOSEC] 20 mg PO AC-BRKFST 11/12/16 [History] HYDROcodone/APAP 5-325MG [[place] 5-325] 1 - 2 each PO Q4-6H PRN #50 tab 11/07/19 [Rx] Meloxicam [Mobic] 1 - 2 tab PO DAILY PRN #30 tab 11/07/19 [Rx] Warfarin Sodium [Coumadin] 10 mg PO DAILY 2 Days #2 tablet 11/08/19 [Rx] Follow up Appointment(s)/Referral(s): Claudia Castañeda PAC [PHYSICIAN INTERN ARCHITECT] - 11/23/19 2:15 pm Devante Montague MD [STAFF PHYSICIAN] - 11/16/19 10:00 am [facility], [NON-STAFF] - As Needed Tanya Astorga MD [Primary Care Provider] - 11/15/19 12:30 pm Ambulatory/Diagnostic Orders: Prothrombin Time INR [LAB.AMB] Time Frame: 11/11/19, Facility: [facility], Location: [facility] Activity/Diet/Wound Care/Special Instructions: Medical to manage anticoagulation. May bear wt as tolerated w walker. May shower if no drainage from incision. Leave Optifoam in place for 10 days. Discharge Disposition: HOME WITH HOME HEALTH SERVICES
[2019-11-08] MEDS ORDERED: WARFARIN 10 MG TAB PO ONE ×2 (18:00)
[2019-11-08] MEDS ORDERED: WARFARIN 7.5 MG TAB PO ONE (18:00)
[2019-11-08] MEDS ORDERED: TEMAZEPAM 15 MG CAP PO PRN (22:00)
== END 2019-11-08 13:32 | disposition home health service (06) | DRG 470 ==
LOC: OR 07:49 → EDSTATUS 09:10 → 4SSUR 11:26 → OR 11-08 08:59
PROVIDERS: ADMIT Orthopaedic Surgery; ATTEND Orthopaedic Surgery
PROC: 0SR906A Replacement of Right Hip Joint with Oxidized Zirconium on Polyethylene Synthetic Substitute, Uncemented, Open Approach (ICD-10-PCS; principal; 2019-11-07 09:10)
DX: M16.11 Unilateral primary osteoarthritis, right hip (principal); I48.20 Chronic atrial fibrillation, unspecified; E78.5 Hyperlipidemia, unspecified; K21.9 Gastro-esophageal reflux disease without esophagitis; K22.70 Barrett's esophagus without dysplasia; R79.1 Abnormal coagulation profile; Z79.01 Long term (current) use of anticoagulants; Z79.1 Long term (current) use of non-steroidal anti-inflammatories (NSAID); Z79.899 Other long term (current) drug therapy; Z87.891 Personal history of nicotine dependence; G43.909 Migraine, unspecified, not intractable, without status migrainosus; H91.90 Unspecified hearing loss, unspecified ear; I10 Essential (primary) hypertension; R40.0 Somnolence; Z90.49 Acquired absence of other specified parts of digestive tract; Z98.42 Cataract extraction status, left eye; Z98.41 Cataract extraction status, right eye; T41.3X5A Adverse effect of local anesthetics, initial encounter; Z83.3 Family history of diabetes mellitus; Z82.49 Family history of ischemic heart disease and other diseases of the circulatory system; Z80.3 Family history of malignant neoplasm of breast; Z80.0 Family history of malignant neoplasm of digestive organs
CPT/HCPCS: 73501; 85025; 85610; 86850; 86891; 86900; 86901; 88305; 88311

== ENCOUNTER 2021-10-07 07:46 | Day surgery (SDC) | payer BC, MEDICARE, OTHER ==
[~2021-10-07 07:46] MED LIST changes: -ACETAMINOPHEN TAB 500 MG TAB PO ONE; +DEXAMETHASONE SOD PHOSPHATE 4 MG/ML 1 ML VIAL IV ONE; -GABAPENTIN 300 MG CAP PO ONE; +HYDROmorphone 0.5 MG/0.5 ML SYRINGE IVP PRN; +LIDOCAINE 1% (10MG/ML) FOR IV START INTRADERMA PRN; -LIDOCAINE 1% 20 ML VIAL (10MG/ML) FOR IV START INTRADERMA PRN; -MELOXICAM 7.5 MG TAB PO ONE; +ONDANSETRON 4 MG/2 ML VIAL IVP ONE; -ROPIVACAINE 246.25 MG, EPINEPHrine 0.5 MG, KETOROLAC 30 MG, cloNIDine HCL/PF 80 MCG, WA... MISCELLANE ONE; -TRANEXAMIC ACID 1,000 MG in SODIUM CHLORIDE 0.9% 100 ML IVPB ONE; +VANCOMYCIN 1,500 MG in SODIUM CHLORIDE 0.9% 250 ML IVPB PRN
[2021-10-07] MEDS: LACTATED RINGERS 1,000 ML IV SCH ×2 (08:54→09:30)
[2021-10-07 09:02] LABS: Basophils % (A) 0 %; Eosinophils # (A) 0.1 k/uL (0-0.7); Eosinophils % (A) 1 %; HCT 37.5 % (34.0-46.0); HGB 12.2 gm/dL (11.4-16.0); Lymphocytes # (A) 0.8 k/uL (1.0-4.8); Lymphocytes % (A) 12 %; MCH 33.2 pg (25.0-35.0); MCHC 32.5 g/dL (31.0-37.0); MCV 102.4 fL (80.0-100.0); Macrocytosis Slight; Mean Platelet Volume 6.9; Monocytes # (A) 0.3 k/uL (0-1.0); Monocytes % (A) 5 %; Neutrophils # (A) 5.1 k/uL (1.3-7.7); Neutrophils % (A) 78 %; Platelet Count 246 k/uL (150-450); RBC 3.67 m/uL (3.80-5.40); RDW 13.1 % (11.5-15.5); WBC 6.6 k/uL (3.8-10.6)
[2021-10-07] MEDS ORDERED: MIDAZOLAM 2 MG/2 ML VIAL IVP ONE (09:11)
[2021-10-07] MEDS ORDERED: SODIUM CHLORIDE 0.9% (PF) 10 ML VIAL ONE (09:24)
[2021-10-07] MEDS ORDERED: ROPIVACAINE 5 MG/ML 30 ML VIAL ONE (09:24)
[2021-10-07] MEDS ORDERED: fentaNYL (PF) 50 MCG/ML 2 ML AMP ONE (09:24)
[2021-10-07] MEDS ORDERED: SUCCINYLCHOLINE CHLORIDE 100 MG/5 ML SYR IV ONE (09:24)
[2021-10-07] MEDS ORDERED: LIDOCAINE 1% INJ 10MG/ML (20 ML MDV) ONE (09:24)
[2021-10-07] MEDS ORDERED: ePHEDrine 50 MG/ML 1 ML AMP ONE (09:24)
[2021-10-07] MEDS ORDERED: PROPOFOL 10 MG/ML 20 ML VIAL IV ONE (09:24)
[2021-10-07 09:28] LABS: INR 0.9 (<1.2); Partial Thromboplastin Time 22.1 sec (22.0-30.0); Prothrombin Time 10.2 sec (9.0-12.0)
--- NOTE | 2021-10-07 09:55 | P.ANPRN ---
Procedure Note - Anesthesia - Nerve Block Performed Right Adductor Canal Time Out Performed: Yes (09:10) Date of Procedure: 10/07/21 Procedure Start Time: Procedure Stop Time: Location of Patient: PreOp Indication: Acute Post-Operative Pain, Requested by Surgeon (Dr Paz) Sedation Type: Sedate with meaningful contact maintained Preparation: Sterile Prep Position: Supine Catheter: None Needle Types: Pajunk Needle Gauge: 21 Ultrasound used to visualize needle placement: Yes Ultrasound used to observe medication spread: Yes Injectate: 0.5% Ropivacaine (see comment for volume) (15cc + 5 cc PF Normal saline) Blood Aspirated: No Pain Paresthesia on Injection Noted: No Resistance on Injection: Normal Image Stored and Saved: Yes Events: Uneventful and Well Tolerated
--- NOTE | 2021-10-07 09:58 | P.ANPRN ---
Procedure Note - Anesthesia - Nerve Block Performed Right Popliteal Time Out Performed: Yes Date of Procedure: 10/07/21 Procedure Start Time: Procedure Stop Time: Location of Patient: PreOp Indication: Acute Post-Operative Pain, Requested by Surgeon (Dr Paz) Sedation Type: Sedate with meaningful contact maintained Preparation: Sterile Prep Position: Left Lateral Catheter: None Needle Types: Pajunk Needle Gauge: 21 Ultrasound used to visualize needle placement: Yes Ultrasound used to observe medication spread: Yes Injectate: 0.5% Ropivacaine (see comment for volume) (15cc + 5cc PF Normal saline) Blood Aspirated: No Pain Paresthesia on Injection Noted: No Resistance on Injection: Normal Image Stored and Saved: Yes Events: Uneventful and Well Tolerated
[2021-10-07 10:00] LABS: ALT 14 U/L (4-34); AST 23 U/L (14-36); African American GFR (CKD) >90 (>60 ml/min/1.73 sqM); Albumin 3.7 g/dL (3.5-5.0); Alkaline Phosphatase 109 U/L (38-126); Anion Gap 8 mmol/L; Blood Urea Nitrogen 15 mg/dL (7-17); Calcium 9.1 mg/dL (8.4-10.2); Carbon Dioxide 28 mmol/L (22-30); Chloride 102 mmol/L (98-107); Glucose 118 mg/dL (74-99); Non-African American GFR(CKD) >90 (>60 ml/min/1.73 sqM); Potassium 4.3 mmol/L (3.5-5.1); Sodium 138 mmol/L (137-145); Total Bilirubin 0.7 mg/dL (0.2-1.3)
--- NOTE | 2021-10-07 11:00 | XR ---
EXAMINATION TYPE: XR ankle limited RT, FL guidance operating room DATE OF EXAM: 10/07/2021 CLINICAL HISTORY: Right ankle fracture. TECHNIQUE: Fluoroscopy. Intraoperative limited views right ankle. COMPARISON: None. FINDINGS: Fluoroscopic guidance was provided during open reduction internal fixation procedure perfo rmed by Dr. Paz. A total of 56 seconds of fluoroscopic time was utilized during the procedure and 2 spot images was acquired. Images acquired show placement of a lateral fixating plate through comminuted displaced lateral malle olar fracture and 2 fixating screws through medial malleolus. Satisfactory alignment is seen on intra operative images obtained. IMPRESSION: As Above.
--- NOTE | 2021-10-07 11:06 | P.OP ---
Date of Procedure: 10/07/21 Preoperative Diagnosis: Displaced right bimalleolar ankle fracture Postoperative Diagnosis: Same Procedure(s) Performed: Open reduction with internal fixation right bimalleolar ankle fracture Implants: Arthrex precontoured lateral malleolar plate, 3.5 locking screws, 3.0 locking screws, 4.0 cannulated screws Anesthesia: BREANN Surgeon: Hitesh Paz Estimated Blood Loss (ml): 40 Pathology: none sent Condition: stable Disposition: PACU Indications for Procedure: Displaced right bimalleolar ankle fracture Operative Findings: No instability of the tibia and fibula articulation Description of Procedure: Prior to the patient being brought to the operating room, anesthesia administered a nerve block on the right lower extremity. The patient was then brought into the operating room and placed on table in the supine position. Timeout was taken to confirm correct patient identifiers, correct procedure, and correct site of surgery. When all staff in the room were in agreement with the timeout the patient was induced and placed under general anesthesia. A well- padded tourniquet was placed on the right thigh and then the right leg was prepped and draped usual manner. Attention was directed over the lateral malleolus where a linear incision was made. Incision was deepened down full-thickness down to the lateral malleolus and then the soft tissue reflected from the fracture site. Interposing soft tissue and hematoma were evacuated and removed from between the fracture fragments. While holding the ankle in her slight inversion bone clamp was used to rotate and bring the fibula back into alignment and restore length. Fluoroscopy indicated that there was anatomic reduction of the fracture. Bone quality was very poor and we're unable to [place] interfragmentary screw. Therefore a 6-hole precontoured plate was positioned over the lateral malleolus adjusted under fluoroscopy and temporarily fixated. 3.5 cortical screw was inserted proximal holes of the plate so that there was better plate contact on the fibula. Then a 35 locking screw was positioned in the holes proximal to the fracture. A combination of 3.0 cortical and 3.0 locking screws were placed through the distal aspect of the lateral malleolus. Drilling was done under fluoroscopic guidance so that the lateral gutter wasn't penetrated. All screws were placed into the distal aspect lateral malleolus. One last 3.5 locking screw was placed in the holes proximal to the fracture. Final fluoroscopic imaging both on AP and lateral views showing anatomic reduction of the fracture with maintenance of the ankle joint mortise as well as a length of the fibula. Then attention was directed to the medial malleolus which had nearly reduced once the lateral malleolus was fixated. A large bone clamp was used to reduce the fracture per bride compression. Fluoroscopic imaging showed that there was restored contour of the ankle joint. Guidewires for 4.0 cannulated screws were inserted at the tip of the medial malleolus and advanced into the tibia avoiding the ankle joint. The first wire was done under fluoroscopic guidance and position was confirmed both on AP and lateral views. The second wire was aligned parallel with the first and just anterior. Once that wire was advanced fluoroscopy was used to assess position which was found to be acceptable. Small stab incisions were made through the skin for axis of the screws drilling was done just to the fracture line and then the 4.0 cannulated screws were inserted across the guidewires and there were advanced into the head engaged medial malleolus and provided fracture compression. Fluoroscopic imaging both on AP and lateral views showed anatomic reduction of the fracture proper placement of hardware. The guidewires were removed and then all wounds were thoroughly irrigated with antibiotic saline. Deep closure on the lateral incision was done with 0 Vicryl. Subcutaneous closure was done with 4-0 Monocryl. And skin closure done with rhett. [place] were utilized to close the 2 small stab incisions for the screws were placed on the medial aspect. Ankle was washed and then dried and then Arthrex jumpstart dressings were applied over all the incisions and a bulky dry dressing to the right leg. The tourniquet was released and capillary refill return to all digits on the right foot. The patient was then placed in a well-padded, well molded plaster posterior mold/sugar tong splint. Ankle was held in neutral dorsiflexion and mild eversion as it dried. Once dried anesthesia was reversed and the patient taken recovery vital signs stable.
[2021-10-07 11:07] VITALS: RESP 16; TEMP 99.3
[2021-10-07] MEDS ORDERED: HYDROcodone/APAP 7.5-325MG 1 EACH TAB ONE (12:24)
[2021-10-07] MEDS ORDERED: HYDROcodone/APAP 7.5-325MG 1 EACH TAB PO ONE (12:27)
[2021-10-07 12:40] VITALS: BP 122/75; PULSE 83
== END 2021-10-07 13:03 | disposition home or self-care (01) ==
LOC: OR 07:46
PROVIDERS: ATTEND Podiatrist
DX: S82.841A Displaced bimalleolar fracture of right lower leg, initial encounter for closed fracture (principal)
CPT/HCPCS: 27814; 64447; 64445; 76942; 80053; 85025; 85610; 85730; 73600; C1713 ×2; J2250; J3370; J1100; J2405; J2001; J3010; J2795; J0330; J2704; J1170

== ENCOUNTER → 2023-04-02 | Outpatient (CLI) | payer MEDICARE ==
[2023-04-02 16:30] LABS: African American GFR (CKD) >90 (>60 ml/min/1.73 sqM); Blood Urea Nitrogen 20 mg/dL (7-17); Non-African American GFR(CKD) 85 (>60 ml/min/1.73 sqM)
--- NOTE | 2023-04-02 17:53 | CT ---
EXAMINATION TYPE: CT brain wo/w con CT DLP: 2052.4 mGycm, Automated exposure control for dose reduction was used. DATE OF EXAM: 04/02/2023 5:01 PM COMPARISON: None. CLINICAL INDICATION:Female, 77 years old with history of R51.9 HEADACHE, UNSPECIFIED; PHH, Headache x 2 weeks TECHNIQUE: Axial CT images of the brain were obtained followed by contrast enhanced axial images of t he brain with 100 cc of ISO-view 300 IV contrast. One or more CT dose reduction strategies were utili zed during this examination. Coronal and sagittal reformats reviewed. FINDINGS: Extra-axial spaces: No abnormal extra-axial fluid collections. Ventricular system: Dilatation in proportion to cerebral atrophy. Cerebral parenchyma: Cerebral atrophy. No acute intraparenchymal hemorrhage or mass effect. The post -white junction is well differentiated. Scattered hypoattenuating areas are seen within the white mat ter. No abnormal enhancement is seen after the administration of intravenous contrast. Cerebellum: Unremarkable. Mass effect: No evidence of midline shift. Intracranial vasculature: unremarkable Soft tissues: Normal. Calvarium/osseous structures: No depressed skull fracture. Benign hyperostosis frontalis noted. Paranasal sinuses and mastoid air cells: The mastoid air cells are clear. Mild mucosal thickening of the left anterior ethmoid sinus with moderate mucosal thickening of the right sphenoid sinus with hyp erdense material also identified likely representing chronic debris. Visualized orbits: Bilateral aphakia IMPRESSION: 1. No acute intracranial process and no evidence to suggest intracranial mass. 2. Nonspecific white matter changes, likely secondary to chronic small vessel ischemic disease. 3. Moderate right sphenoid sinus mucosal disease.
== END | disposition home or self-care (01) ==
LOC: RADCTMAIN 15:50
PROVIDERS: ATTEND Internal Medicine
DX: J32.3 Chronic sphenoidal sinusitis (principal); R90.82 White matter disease, unspecified
CPT/HCPCS: 82565; 84520; 70470; 36415; Q9967

== ENCOUNTER → 2023-06-24 | Outpatient (CLI) | payer MEDICARE ==
--- NOTE | 2023-06-24 15:43 | XR ---
EXAMINATION TYPE: XR chest 2V DATE OF EXAM: 06/24/2023 COMPARISON: 06/23/2019 HISTORY: Shortness of breath TECHNIQUE: Frontal and lateral views of the chest are obtained. FINDINGS: Scattered senescent parenchymal changes noted. Hyperinflation compatible with COPD. No evidence for infiltrate. No evidence for atelectasis. Heart size is stable. Mediastinal structures are stable and grossly unremarkable. No evidence for hilar prominence. Degenerative changes dorsal spine. IMPRESSION: 1. No evidence for acute pulmonary disease.
== END | disposition home or self-care (01) ==
LOC: RADXRYALE 15:21
PROVIDERS: ATTEND Internal Medicine
DX: R07.9 Chest pain, unspecified (principal); R06.02 Shortness of breath
CPT/HCPCS: 71046

== ENCOUNTER → 2023-11-30 | Outpatient (CLI) | payer MEDICARE ==
--- NOTE | 2023-11-30 12:59 | US ---
EXAMINATION TYPE: US thyroid st tissue head/neck DATE OF EXAM: 11/30/2023 COMPARISON: NONE CLINICAL INDICATION: Female, 78 years old with history of R59.9 ENLARGED LYMPH NODES, UNSPECIFIED; Pt states feeling multiple "lumps" left lateral neck and midline neck TECHNIQUE: left lateral neck and midline neck scanned In area of pt's multiple palpable lumps, only two probable lymph nodes were visualized within left lateral neck, largest lymph node measured= 1.4 x 0.5 x 0.6 cm IMPRESSION: Multiple lymph nodes are seen in the area of palpable abnormality. Complete evaluation of the neck wi th CT neck with IV contrast recommended.
== END | disposition home or self-care (01) ==
LOC: RADUSWWP 12:23
PROVIDERS: ATTEND Internal Medicine
DX: R59.0 Localized enlarged lymph nodes (principal)
CPT/HCPCS: 76536

== ENCOUNTER → 2023-12-18 | Outpatient (CLI) | payer MEDICARE ==
[2023-12-18 11:42] LABS: African American GFR (CKD) >90 (>60 ml/min/1.73 sqM); Blood Urea Nitrogen 22 mg/dL (7-17); Non-African American GFR(CKD) 81 (>60 ml/min/1.73 sqM)
--- NOTE | 2023-12-18 19:09 | CT ---
EXAMINATION TYPE: CT soft tissue neck w con DATE OF EXAM: 12/18/2023 COMPARISON: Ultrasound 11/30/2023 HISTORY: Lt sided swelling CT DLP: 514 mGycm CONTRAST: Patient injected with 100 mL of Isovue 300. TECHNIQUE: Axial images at 3 mm thick sections. Reconstructed images in the coronal plane and sagitt al plane are reviewed. FINDINGS: Limited CT sections are obtained the lung apices. The lung apices appear clear. CT neck: The torus tubarius and fossa of Rosenmuller are normal. Shear Helper spaces are normal. Ther e is opacification of the posterior right sphenoid sinus. Remaining paranasal sinuses and mastoid air cells appear clear. Parotid glands appear normal and symmetrical. Submandibular glands, are normal. Parapharyngeal spac es are normal. No suspicious adenopathy is evident. There are a few scattered small lymph nodes in t he jugulodigastric and carotid sheath region on the left. No suspicious enlarged lymphadenopathy is e vident. Lymph nodes. Correlate with the ultrasound. The hypopharynx appears within normal limits. Vocal cord level appear symmetrical. Thyroid as visualized is normal. Osseous structures are normal. IMPRESSION: 1. No suspicious enlarged lymphadenopathy.. 2. No acute CT neck abnormalities.
== END | disposition home or self-care (01) ==
LOC: RADCTMAIN 10:57
PROVIDERS: ATTEND Internal Medicine
DX: R59.1 Generalized enlarged lymph nodes (principal)
CPT/HCPCS: 82565; 84520; 70491; 36415; Q9967

== ENCOUNTER → 2024-09-26 | Outpatient (CLI) | payer MEDICARE ==
--- NOTE | 2024-09-26 12:29 | XR ---
EXAMINATION TYPE: XR lumbosacral spine min 4V DATE OF EXAM: 09/26/2024 11:52 AM COMPARISON: 09/26/2024 CLINICAL INDICATION: Female, 79 years old with history of [id number] RADICULOPATHY; [facility] TECHNIQUE: XR lumbosacral spine min 4V - Frontal, lateral , bilateral oblique and coned in L5-S1 late ral views of the spine. FINDINGS: No evidence of any acute osseous pathology. No evidence of loss of vertebral body height i s seen. There is grade 1 anterolisthesis of L4 and L5 alignment of the lumbar vertebral bodies. Mild scattered disc space narrowing. Multilevel marginal osteophyte formation throughout the visualized sp ine. There is facet joint arthropathy throughout the spine. Scattered at least mild neural foraminal stenosis. Upper abdominal surgical clips present. This course of the arterial vasculature. Right hip arthroplasty changes present. IMPRESSION: 1. No acute fracture. 2. Moderate multilevel disc degeneration. [facility], , 09/26/2024 12:27 PM
== END | disposition home or self-care (01) ==
LOC: RADXRYALE 11:17
PROVIDERS: ATTEND Internal Medicine
DX: M51.16 Intervertebral disc disorders with radiculopathy, lumbar region (principal); M47.26 Other spondylosis with radiculopathy, lumbar region; Z96.641 Presence of right artificial hip joint
CPT/HCPCS: 72110